=== PATIENT | female | born 1950 | race Hispanic/Latino ===

== ENCOUNTER 2020-06-21 10:26 | Outpatient (CLI) | payer MEDICARE, BC ==
--- NOTE | 2020-06-21 12:56 | Mammography Report ---
DIGITAL SCREENING MAMMOGRAM WITH TOMOSYNTHESIS WITH CAD, 06/21/2020 CLINICAL INFORMATION / INDICATION: Routine Screening Mammography. TECHNIQUE: Digital left 2D and 3D mammography with tomosynthesis was obtained in the craniocaudal an d mediolateral oblique projections. Computer-Aided Detection (CAD) analysis was used for interpretat ion of this study. COMPARISON: 06/16/2019, 06/16/2018 FINDINGS: Breast Density: The breast is heterogeneously dense, which may obscure small masses. No dominant mass, suspicious calcifications, or architectural distortion in the left breast. Benign calcifications are unchanged. IMPRESSION: No mammographic evidence of malignancy. Follow up recommendation: Routine yearly BI-RADS Category 2: Benign. A "normal" or negative report should not discourage follow up or biopsy of a clinically significant f inding. A written summary of these findings will be mailed to the patient. The patient will be entered into a mammography reporting system which will generate a reminder letter for the patient's next appointmen t at the appropriate interval. The [employer] recommends yearly mammograms starting at age 40 and continuing as l marcella as a woman is in good health. Breast MRI is recommended for women with an approximate 20-25% or greater lifetime risk of breast cancer, including women with a strong family history of breast or ova brendon cancer or who have been treated for Hodgkin's disease. Signer Name: Sukhi Cross MD Signed: 06/21/2020 12:51 PM Workstation Name: [id number]
== END 2020-06-21 10:27 | disposition home or self-care (01) ==
LOC: SPVWC 10:26
PROVIDERS: ATTEND Surgery
DX: Z12.31 Encounter for screening mammogram for malignant neoplasm of breast (principal); N64.89 Other specified disorders of breast
CPT/HCPCS: 77063